=== PATIENT | male | born 1960 | race Caucasian/White ===

== ENCOUNTER 2019-07-12 05:26 | Inpatient (IN) | payer OTHER ==
[2019-07-12] MEDS: SOD CHLORIDE 0.9% 1,000 ML IV ×4 (06:09→20:26)
[2019-07-12] MEDS ORDERED: CEFAZOLIN 2 GM/50 ML (PMX) 50 ML IVPB (07:00)
[2019-07-12] MEDS: POLYMYXIN/BACITRACIN 1L IRRIG (07:18)
[2019-07-12] MEDS ORDERED: METOCLOPRAMIDE 10 MG INJ IV ×2 (07:30→10:00)
[2019-07-12] MEDS ORDERED: HYDROmorphONE 1 MG/5 ML IV SYRINGE IV ×3 (07:30)
[2019-07-12] MEDS ORDERED: DESFLURANE 15 MIN (07:30)
[2019-07-12] MEDS ORDERED: ALBUTEROL 0.083% (NEB) 2.5 MG/3 ML AMP HHN ×2 (07:30→10:00)
[2019-07-12] MEDS ORDERED: DIPHENHYDRAMINE 50 MG INJ IV (07:30)
[2019-07-12] MEDS ORDERED: FENTAnyl 50 MCG/ML VIAL IV ×5 (07:30→10:00)
[2019-07-12] MEDS ORDERED: MEPERIDINE 25 MG INJ IV (07:30)
[2019-07-12] MEDS ORDERED: ONDANSETRON 4 MG INJ IV ×3 (07:30→20:00)
[2019-07-12] MEDS ORDERED: FENTAnyl 50 MCG/ML VIAL (07:32)
[2019-07-12] MEDS ORDERED: ROPIVACAINE 0.5 % 30 ML VIAL (07:32)
[2019-07-12] MEDS ORDERED: SUGAMMADEX SODIUM 200 MG/2 ML VIAL IV ×2 (08:18→08:37)
[2019-07-12] MEDS ORDERED: CEFAZOLIN 1 GM INJ (08:18)
[2019-07-12] MEDS ORDERED: LIDOCAINE 100 MG SYRINGE (08:18)
[2019-07-12] MEDS ORDERED: PROPOFOL 20 ML (08:18)
[2019-07-12] MEDS ORDERED: ROCURONIUM 50 MG INJ (08:18)
[2019-07-12] MEDS ORDERED: SUCCINYLCHOLINE CHLORIDE 100 MG/5 ML SYG IV (08:18)
[2019-07-12] MEDS ORDERED: LABETALOL HCL 20MG INJ ×2 (08:37→09:54)
[2019-07-12] MEDS ORDERED: hydrALAzine 20 MG INJ (08:48)
[2019-07-12] MEDS ORDERED: PROPOFOL 100 ML (09:32)
[2019-07-12] MEDS: PROPOFOL 100 ML IV ×2 (09:34→23:50)
[2019-07-12] MEDS: LABETALOL HCL 20MG INJ IV ×3 (09:58→11:58)
[2019-07-12] MEDS: HYDROmorphONE 0.5 MG/0.5 ML SYG IV (09:59)
[2019-07-12] MEDS ORDERED: HYDROmorphONE 0.5 MG/0.5 ML SYG IV (10:00)
[2019-07-12] MEDS: hydrALAzine 20 MG INJ IV ×2 (10:40→11:11)
[2019-07-12] MEDS ORDERED: hydrALAzine 20 MG INJ IV (12:30)
[2019-07-12 14:34] LABS: AADO2 Arterial 192.2 mmHg (7.0-24.0); Allen Test ACCEPTAB; Arterial Base Excess -3.6 mmol/L (-3.0-3); Arterial Blood Gas Oxygen Sat 98.8 mmHG (95.0-98.0); Arterial COHb 0.1 % (0.0-3.0); Arterial Fraction of Oxyhgb 98.6 % (93.0-99.0); Arterial HCO3 16.8 mmol/L (22.0-26.0); Arterial MetHb 0.1 % (0.0-1.5); Arterial pCO2 20.7 mmhg (35-45); Blood Gas PS 10; MODE VENT - CPAP; Site Right Radial
[2019-07-12] MEDS: morphine 2 MG INJ IV (15:26)
[2019-07-12] MEDS ORDERED: ACETAMINOPHEN 325 MG TAB PO (20:00)
[2019-07-12] MEDS ORDERED: LORAZEPAM 2 MG INJ IV (20:00)
[2019-07-12] MEDS ORDERED: HYDROCODONE/APAP (5/325) TAB PO (20:00)
[2019-07-12] MEDS ORDERED: LORAZEPAM 0.5 MG TAB PO (21:30)
[2019-07-13] MEDS: NICOTINE (14 MG/24 HR) PATCH TRANSDERM ×2 (00:05→08:56)
[2019-07-13] MEDS: morphine 2 MG INJ IV ×2 (00:06→09:00)
[2019-07-13 05:49] LABS: ADD MAN DIFF? NO
[2019-07-13 05:57] LABS: WHITE BLOOD COUNT 14.7 10^3/ul (4.8-10.8)
[2019-07-13 05:57] LABS: ABNORMAL IP MESSAGE 1; BASOPHILS % 0.1 % (0.0-2.0); EOSINOPHILS % 0.1 % (0.0-7.0); HEMATOCRIT 39.9 % (42.0-52.0); HEMOGLOBIN 12.9 g/dl (14.0-18.0); LYMPHOCYTES # 2.1 10^3/ul (0.8-2.9); LYMPHOCYTES % 14.1 % (15.0-51.0); MEAN CORPUSCULAR HEMOGLOBIN 32.9 pg (29.0-33.0); MEAN CORPUSCULAR HGB CONC 32.3 g/dl (32.0-37.0); MEAN CORPUSCULAR VOLUME 101.8 fl (82.0-101.0); MEAN PLATELET VOLUME 12.6 fl (7.4-10.4); MONOCYTE # 2.2 10^3/ul (0.3-0.9); NEUTROPHIL # 10.3 10^3/ul (1.6-7.5); NEUTROPHILS % 70.3 % (39.0-77.0); PLATELET COUNT 214 10^3/UL (140-415); POSITIVE DIFF @See below; RED BLOOD COUNT 3.92 10^6/ul (4.70-6.10); RED CELL DISTRIBUTION WIDTH 13.2 % (11.5-14.5)
[2019-07-13 06:21] LABS: ANION GAP 11 (5-13); BLOOD UREA NITROGEN 10 mg/dl (7-20); CARBON DIOXIDE 28 mmol/L (21-31); CHLORIDE 101 mmol/L (97-110); CREATININE 0.74 mg/dl (0.61-1.24); Estimated GFR > 60 mL/min (>60); GLUCOSE 113 mg/dl (70-220); POTASSIUM 3.7 mmol/L (3.5-5.1); SODIUM 140 mmol/L (135-144)
[2019-07-13] MEDS: SOD CHLORIDE 0.9% 1,000 ML IV (06:31)
== END 2019-07-13 18:10 | disposition home or self-care (01) | DRG 988 ==
LOC: SDS 05:26 → ICU 08:58
PROC: 0YU50JZ Supplement Right Inguinal Region with Synthetic Substitute, Open Approach (ICD-10-PCS; principal; 2019-07-12 07:28)
PROC: 5A1935Z Respiratory Ventilation, Less than 24 Consecutive Hours (ICD-10-PCS; 2019-07-12 07:28)
DX: J95.821 Acute postprocedural respiratory failure (principal); K40.30 Unilateral inguinal hernia, with obstruction, without gangrene, not specified as recurrent; I10 Essential (primary) hypertension; Y83.8 Other surgical procedures as the cause of abnormal reaction of the patient, or of later complication, without mention of misadventure at the time of the procedure; F17.210 Nicotine dependence, cigarettes, uncomplicated; E88.09 Other disorders of plasma-protein metabolism, not elsewhere classified; Y92.239 Unspecified place in hospital as the place of occurrence of the external cause
CPT/HCPCS: 36600; 70450; 71045; 80048; 82803; 85025; 87081; 88302; 94002; 97161; 99217